=== PATIENT | male | born 1985 | race Caucasian/White ===

== ENCOUNTER 2020-08-28 11:23 | Inpatient (IN) | payer BC, OTHER ==
[~2020-08-28] VITALS: Ht 180.3 cm; Wt 98.8 kg
[2020-08-28] MEDS ORDERED: SODIUM CHLORIDE 0.9% 1,000 ML IVB ONE (11:45)
[2020-08-28] MEDS ORDERED: MORPHINE SULFATE 4 MG/ML SYR/VIAL IV ONE (11:45)
[2020-08-28] MEDS ORDERED: KETOROLAC TROMETH 30 MG/ML 1ML VIAL IV ONE (11:45)
[2020-08-28] MEDS ORDERED: ONDANSETRON HCL 4 MG/2 ML VIAL IV ONE (11:45)
[2020-08-28 12:28] LABS: Basophils # (auto) 0.1 10 ^3/uL (0-0.2); Basophils % (auto) 0.7 % (0.0-2.0); Eosinophils # (auto) 0.1 10 ^3/uL (0-0.8); Eosinophils % (auto) 1.3 % (0.0-7.0); Hematocrit 44.7 % (41.0-53.0); Hemoglobin 15.6 g/dL (13.5-17.5); Lymphocytes % (auto) 20.5 % (10.0-50.0); Mean Corpuscular Hemoglobin 29.5 pg (28.0-32.0); Mean Corpuscular Hgb Conc. 34.8 g/dL (32.0-36.0); Mean Corpuscular Volume 84.7 fL (80.0-100.0); Monocytes # (auto) 0.6 10 ^3/uL (0-1.3); Monocytes % (auto) 5.9 % (0.0-12.0); Neutrophils # (auto) 6.9 10 ^3/uL (1.6-8.6); Neutrophils % (auto) 71.6 % (37.0-80.0); Nucleated Red Blood Cells % 0.1 %; Platelet Count (auto) 329 10^3/uL (140-450); Red Blood Cells 5.27 10^6/uL (4.5-5.90); White Blood Cell 9.6 10^3/uL (4.4-10.8)
[2020-08-28 12:44] LABS: Potassium 3.5 mmol/L (3.5-5.1)
[2020-08-28 13:02] LABS: Albumin 4.3 g/dL (3.4-5.0); BUN/Creatinine Ratio 10.3; Bilirubin, Total 1.4 mg/dL (0.2-1.0); Calcium 9.5 mg/dL (8.5-10.1); Total Protein 8.1 g/dL (6.4-8.2)
[2020-08-28] MEDS ORDERED: hydrALAZINE HCL 20 MG/ML VL IV PRN (15:45)
[2020-08-28] MEDS ORDERED: LORazepam 2MG/ML-1ML VIAL IV PRN (15:45)
[2020-08-28] MEDS ORDERED: NITROGLYCERIN 0.4 MG SL TAB SL PRN (15:45)
[2020-08-28] MEDS ORDERED: KETOROLAC TROMETH 60MG/2ML VIAL IM PRN (15:45)
[2020-08-28] MEDS: SODIUM CHLORIDE 0.9% 1,000 ML IV SCH (15:45)
[2020-08-28] MEDS ORDERED: MORPHINE SULF INJ 2 MG/ML SYRINGE 1ML IV PRN ×2 (15:45)
[2020-08-28] MEDS ORDERED: ONDANSETRON HCL 4 MG/2 ML VIAL IV PRN (15:45)
[2020-08-28] MEDS ORDERED: DEXTROSE (50%) 50ML SYRG IV PRN (20:00)
--- NOTE | 2020-08-28 20:15 | NUR ---
[facility] admit from [facility] admitted to [facility] after SBAR received. Patient oriented to KYLE ABRAHAM RN, room 244, bed B. Pt is on room air with even and unlabored respirations. No S/S of distress, pain or SOB. Patient weighed by bedscale and encouraged to call if they need something. All questions and concerns addressed, patient verbalized understanding. Bed locked, in lowest position, call light within reach, side rails up x2. Will continue to monitor Q1hr and PRN.
[2020-08-28 22:00] VITALS: BP 157/85
[2020-08-28] MEDS: InsuLIN REG 1unit/0.01ml Soln (100units/ml) SC SCH (22:00)
[2020-08-28] MEDS: ACCU-CHEK COMFORT CURVE STRIP VI SCH (22:00)
[2020-08-28 23:03] VITALS: BP 157/85
[2020-08-29] MEDS: SODIUM CHLORIDE 0.9% 1,000 ML IV SCH ×4 (00:05→17:32)
[2020-08-29 05:00] VITALS: BP 130/78
[2020-08-29 06:35] LABS: Basophils # (auto) 0 10 ^3/uL (0-0.2); Basophils % (auto) 0.5 % (0.0-2.0); Eosinophils # (auto) 0.2 10 ^3/uL (0-0.8); Eosinophils % (auto) 2.1 % (0.0-7.0); Hemoglobin 14.5 g/dL (13.5-17.5); Lymphocytes # (auto) 2.2 10 ^3/uL (0.4-5.4); Mean Corpuscular Hgb Conc. 33.8 g/dL (32.0-36.0); Mean Corpuscular Volume 85.8 fL (80.0-100.0); Monocytes # (auto) 0.5 10 ^3/uL (0-1.3); Monocytes % (auto) 6.8 % (0.0-12.0); Neutrophils # (auto) 4.5 10 ^3/uL (1.6-8.6); Neutrophils % (auto) 60.6 % (37.0-80.0); Nucleated Red Blood Cells % 0.1 %; Platelet Count (auto) 270 10^3/uL (140-450); Red Blood Cells 5.01 10^6/uL (4.5-5.90); Red Cell Distribution Width 13.3 % (11.8-14.3); White Blood Cell 7.4 10^3/uL (4.4-10.8)
[2020-08-29] MEDS: ACCU-CHEK COMFORT CURVE STRIP VI SCH ×4 (06:40→22:00)
[2020-08-29] MEDS: InsuLIN REG 1unit/0.01ml Soln (100units/ml) SC SCH ×4 (06:40→22:00)
[2020-08-29 07:04] LABS: Potassium 3.4 mmol/L (3.5-5.1)
[2020-08-29 07:11] LABS: Albumin 3.6 g/dL (3.4-5.0); BUN/Creatinine Ratio 11.6
--- NOTE | 2020-08-29 07:12 | NUR ---
OPENING SHIFT NOTE Assumed care of the patient from photographer portrait RN. Patient is alert and oriented x4, no signs of distress noted, patient denies pain. He was updated on the plan of care and verbalized understanding. Bed is locked, in the lowest position, side rails up x2 and the call light is in reach. He was encouraged to call for assistance as needed.
[2020-08-29 07:13] LABS: Bilirubin, Total 1.5 mg/dL (0.2-1.0); Total Protein 6.9 g/dL (6.4-8.2)
[2020-08-29 09:00] VITALS: BP 136/86
[2020-08-29] MEDS: PANTOPRAZOLE 40 MG/10 ML VIAL INJ IV SCH (09:34)
--- NOTE | 2020-08-29 10:15 | NUR ---
JACI AT BEDSIDE Updated on the patient status, plan of care was discussed with the patient and he verbalized understanding.
--- NOTE | 2020-08-29 10:20 | NUR ---
CALL FROM [facility] urologist, Per MD give ordered flomax and mannitol. Patient is to follow up outpatient. Informed hospitalist.
[2020-08-29] MEDS ORDERED: MANNITOL 20% SOLN 100 gm/500ml 100 ML IV ONE (10:30)
[2020-08-29 12:52] VITALS: BP 132/99
[2020-08-29 16:46] VITALS: BP 131/91
[2020-08-29] MEDS ORDERED: TAMSULOSIN HYDROCHLORIDE 0.4 MG CAP PO SCH (18:00)
[2020-08-29 20:00] VITALS: BP 157/85
[2020-08-29 22:56] VITALS: BP 126/88
[2020-08-30] MEDS: SODIUM CHLORIDE 0.9% 1,000 ML IV SCH ×2 (01:05→07:45)
[2020-08-30 05:33] VITALS: BP 129/73
[2020-08-30] MEDS: ACCU-CHEK COMFORT CURVE STRIP VI SCH ×2 (06:16→11:53)
[2020-08-30] MEDS: InsuLIN REG 1unit/0.01ml Soln (100units/ml) SC SCH ×2 (06:16→11:53)
--- NOTE | 2020-08-30 06:58 | NUR ---
PT IS CONTINUING TO STRAIN HIS URINE. AMBULATES W/O ASSISTANCE. DENIES ANY PAIN.
--- NOTE | 2020-08-30 07:30 | NUR ---
Opening Shift Note Assumed care of patient, awake and alert. No S/S of distress/SOB or pain. Instructed on POC and to call for assist PRN, will continue to monitor for changes Q1hr and PRN. Fall precautions in place per safety protocol .
[2020-08-30 09:00] VITALS: BP 125/73
[2020-08-30 09:09] LABS: Urine Bacteria FEW /hpf (None Seen); Urine Blood 1+ /uL (Negative); Urine Mucus FEW (None Seen); Urine WBC 6 /hpf (0 - 3)
[2020-08-30] MEDS: PANTOPRAZOLE 40 MG/10 ML VIAL INJ IV SCH (09:46)
--- NOTE | 2020-08-30 10:25 | NUR ---
Hospitalist MD Vasquez at bedside, aware of patient status. new orders for DC received at this time. Will carry out new orders.
[2020-08-30 11:12] VITALS: BP 125/73
[2020-08-30 12:32] VITALS: BP 150/80
--- NOTE | 2020-08-30 12:53 | NUR ---
Discharge instructions given as ordered. Encourage to follow up with PMD as instructed. All questions and concerns addressed. Patient verbalized understanding. Medication reconciliation form completed and copy given to patient. IV removed with catheter intact, pressure dressing applied. Patient walked to vehicle with all personal belongings. No distress noted at time of departure.
--- NOTE | 2020-08-31 17:29 | NUR ---
1720 - I was not notified of SS consult regarding no PCP.
== END 2020-08-30 13:00 | disposition home or self-care (01) | DRG 694 ==
LOC: ER 11:23 → OVERFLOW 11:24 → WEST WING 19:50
PROVIDERS: ADMIT Family Medicine; ATTEND Family Medicine
DX: N13.2 Hydronephrosis with renal and ureteral calculous obstruction (principal); E11.65 Type 2 diabetes mellitus with hyperglycemia; F17.210 Nicotine dependence, cigarettes, uncomplicated; K76.0 Fatty (change of) liver, not elsewhere classified
CPT/HCPCS: 36415; 71046; 74176; 80053; 81001; 82962; 83036; 83690; 85025; 87086; 96361; 96374; 96375; C9113; G0378; J1815; J1885; J2405